=== PATIENT | male | born 1965 | race Caucasian/White ===

== ENCOUNTER 2019-05-12 08:40 | Emergency (ER) | payer BC ==
[~2019-05-12] VITALS: Ht 182.9 cm; Wt 104.3 kg
[2019-05-12] MEDS ORDERED: LAMICTAL XR250 MG PO (08:55)
[2019-05-12] MEDS ORDERED: ASPIRIN325 MG PO (08:55)
--- NOTE | 2019-05-13 20:40 | EKG ---
[facility] [address] [facility] [place] [address] Signed Sinus bradycardia Otherwise normal ECG No previous ECGs available Confirmed by JAYME GRIMALDO MD ([id number] on 05/13/2019 8:40:05 PM Electronically Signed By: JAYME GRIMALDO MD 05/13/190 PATIENT NAME: SILVANA RICHARDS Karson Electrocardiogram DATE OF : 69 PHYSICIAN: JAYME GRIMALDO MD REPORT #: [id number] REPORT IS CONFIDENTIAL AND NOT TO BE RELEASED WITHOUT AUTHORIZATION
== END 2019-05-12 11:20 | disposition home or self-care (01) ==
LOC: ED 08:40
DX: R00.2 Palpitations (principal)
CPT/HCPCS: 0297T; 0298T; 93005; 93010; 99284-25